=== PATIENT | male | born 1960 | race Caucasian/White ===

== ENCOUNTER → 2016-08-04 | Outpatient (REF) ==
--- NOTE | 2016-08-05 05:08 | REP ---
Clinical: Pain and disability. Technique: Neutral and frog lateral views of the left hip. Comparison: 10/16/2003. Findings: The patient is status post left hip replacement. Underlying postsurgical/degenerative changes are essentially similar to prior examination. Orthopedic hardware appears to be in satisfactory position and without obvious abnormality. No acute fracture dislocation. Impression: Status post left hip replacement with age-related changes. Signed by Rajan Meade MD 08/05/2016 05:00 A
== END ==
LOC: M SMT 14:24
PROVIDERS: ATTEND Internal Medicine
DX: Z02.71 Encounter for disability determination (principal)